=== PATIENT | female | born 1985 | race Caucasian/White ===

== ENCOUNTER 2020-05-24 19:27 | Emergency (ER) | payer OTHER, SELFPAY ==
[2020-05-24 19:40] VITALS: BP 134/73; PULSE 125; RESP 13; TEMP 36.8; O2SAT 97
--- NOTE | 2020-05-24 20:11 | ED.SKABFB ---
HPI - Skin/Abscess/Foreign Bdy General Chief complaint: Skin/Abscess/Foreign Body Stated complaint: possible shingles on upper abd Source: patient Mode of arrival: ambulatory Limitations: no limitations History of Present Illness HPI narrative: patient is a 34-year-old female who presents to the ED with complaints of a rash on her right breast. Patient states that as feels like the shingles that she has had in the past. She noticed that some bumps about 5 days ago, and then today had noticed that there is blisters and redness in the back in the area. the skin is much more painful if touched, she continues to pull her shirt out so it is not touching Severity: mild Severity scale (1-10): 2 Quality: burning Pain Consistency: constant Relieving factors: none Exacerbating factors: other ( Anything touching her skin makes it worse) Associated symptoms: denies other symptoms Treatments prior to arrival: none Related Data Allergies Allergy/AdvReac Type Severity Reaction Status Date / Time No Known Allergies Allergy Unknown Unverified 03/03/09 17:10 Review of Systems Review of Systems: All systems reviewed & are unremarkable except as noted in HPI and below Constitutional: Constitutional: Denies as per HPI, Denies no additional constitutional complaints, Denies chills, Denies fatigue, Denies fever(s) and Denies weakness Eyes: Eyes: Denies as per HPI, Denies no additional eye complaints, Denies change in vision and Denies photophobia ENT: Denies system reviewed and no additional complaints, except as documented, Denies as per HPI, Denies dysphagia, Denies vertigo, Denies dizziness, Denies epistaxis, Denies nasal congestion and Denies sore throat Cardiovascular: Cardiovascular: Denies as per HPI, Denies no additional cardiovascular complaints, Denies chest pain, Denies rapid heart rate, Denies radiating jaw, neck or arm pain and Denies slow heart rate Respiratory: Respiratory: Denies as per HPI, Denies no additional respiratory complaints, Denies chest congestion, Denies cough, Denies dyspnea and Denies wheezing Gastrointestinal: Gastrointestinal: Denies as per HPI, Denies no additional gastrointestinal complaints, Denies abdominal pain, Denies bloating, Denies constipation, Denies heartburn, Denies diarrhea, Denies nausea and Denies vomiting Musculoskeletal: Musculoskeletal: Denies no additional musculoskeletal complaints, Denies as per HPI, Denies back pain, Denies myalgias, Denies arthralgias, Denies joint swelling and Denies muscle cramps Integumentary/Breasts: Comments: rash inferior to the nipple on the right side Neurologic: Reports system reviewed and no additional complaints, except as documented Psychiatric: Psychiatric: Reports no additional psychiatric complaints Comments: patient has been under a good deal of stress recently and she is trying the sell her house and moving has she has has been a lot going on but seems to be getting better now. PMFSH Past Medical History Medical History (Updated 05/24/20 @ 20:16 by Velia Brannon MD) Shingles Social History Social History (Updated 05/24/20 @ 20:14 by Velia Brannon MD) Smoking status: Current every day smoker Tobacco type: cigarettes Alcohol intake: current Substance use: never Exam Const: General: no acute distress and alert Nutritional Appearance: well nourished Orientation/consciousness: patient oriented x3 HENMT: Head: normal to inspection Mouth: Yes moist mucous membranes Eyes: Conjunctivae: conjunctivae normal Pupils: Equal, round and reactive pupils present Neck: Neck: normal visual inspection Chest: Chest palpation & inspection: normal inspection of the chest Other: Patient does have shingles type rash to the right breast Resp: Effort & Inspection: normal respiratory effort Auscultation: clear to auscultation bilaterally Cardio: Rate: regular rate Rhythm: regular rhythm : General: Yes no CVA tenderness Back/Spine
[2020-05-24 20:14] VITALS: BP 130/76; PULSE 98; RESP 13; O2SAT 98
[2020-05-24] MEDS: VALACYCLOVIR HCL 500 MG TABLET 1000 MG PO (20:28)
== END 2020-05-24 20:31 | disposition home or self-care (01) ==
PROVIDERS: Emergency Provider Emergency Medicine; PCP Internal Medicine
DX: B02.9 Zoster without complications (principal)
CPT/HCPCS: 99283; A9270

== ENCOUNTER 2020-10-16 18:10 | Emergency (ER) | payer OTHER, SELFPAY ==
--- NOTE | ~2020-10-16 | CT_ITS ---
EXAMINATION: CT brain wo con DATE: 10/16/2020 19:37 INDICATION: Left-sided amaurosis fugax. Left hand numbness. TECHNIQUE: Computed tomography (CT) of the head was performed without intravenous contrast. Sagittal and coronal reconstructions were performed. The mA was adjusted according to patient size. Iterative reconstruction technique was employed. The dose-length product was 605.33 mGy-cm. COMPARISON: head CT dated 02/10/2015 and brain MR dated 03/05/2015 FINDINGS: No acute intracranial hemorrhage, acute infarction or abnormal extra axial fluid collection. Ventricl es are normal and symmetric. No mass/mass effect. The orbits, paranasal sinuses and mastoid air cells are normal. IMPRESSION: 1. Normal head CT. Reviewed, dictated and finalized at [facility]. RE D' IMPRESSION: 1. Normal head CT.
--- NOTE | ~2020-10-16 | XR_ITS ---
EXAMINATION: XR chest 2V DATE: 10/16/2020 19:37 INDICATION: Palpitations. Amaurosis fugax. TECHNIQUE: PA and lateral views of the chest were obtained. COMPARISON: Chest radiograph dated 05/03/2019 FINDINGS: The lungs remain clear with no focal airspace opacities, pulmonary edema, pleural effusion or pneumot horax. The cardiomediastinal silhouette is normal. Minimal thoracic spondylosis with mild disc height loss at T8-T9. IMPRESSION: 1. No acute cardiopulmonary disease. Reviewed, dictated and finalized at location H. TRUCK DRIVER
[2020-10-16 18:10] VITALS: BP 140/79; PULSE 75; RESP 14; TEMP 36.6; O2SAT 100
--- NOTE | 2020-10-16 18:20 | ED.NEUROSD ---
HPI - Neuro Symptoms/Deficit General Chief Complaint: Neuro Symptoms/Deficit Stated Complaint: loss of vision in eye and finger/hand numbness Time Seen by Provider: 10/16/20 18:20 Source: patient Mode of arrival: ambulatory Limitations: no limitations History of Present Illness HPI Narrative: Previously well 34-year-old woman comes in today complaining of visual changes in her left eye which lasted approximately 1-1/2 hour. Patient states that it initially started in the central portion of her vision and then seemed to move toward the outer portions. She had some vision but her vision was distorted. Right eye was unaffected. Approximately 1/2 hour later she began to have numbness in her left hand. She had some nausea with the symptoms and a rapid heart rate. She denies weakness, headache, vomiting, diarrhea, recent illness, recent head injury, history of seizures, changes in walking or language. Onset (ago): hour(s) (2) Time: 16:30 History of same: Yes ( Possible migraine however her ocular symptoms were different. ) Severity: severe Quality: numb Relieving factors: none Exacerbating factors: none Context: sudden onset On Anticoagulants: No Treatments Prior to Arrival: none Related Data Home Medications Medication Instructions Recorded Confirmed No Home Medications 07/09/20 10/16/20 Allergies Allergy/AdvReac Type Severity Reaction Status Date / Time No Known Allergies Allergy Unknown Unverified 07/09/20 13:05 Review of Systems Constitutional: Constitutional: Denies fever(s), Denies headache(s) and Denies malaise Eyes: Eyes: Reports as per HPI, Denies diplopia and Denies photophobia ENT: Reports Normal hearing present, Denies otalgia, Denies facial pain, Denies disequilibrium, Denies sore throat, Denies throat swelling and Denies tongue swelling Cardiovascular: Cardiovascular: Denies chest pain, Denies syncope, Reports rapid heart rate, Denies leg edema and Denies radiating jaw, neck or arm pain Respiratory: Respiratory: Denies chest congestion, Denies cough and Denies dyspnea Gastrointestinal: Gastrointestinal: Denies abdominal pain, Denies diarrhea, Reports nausea and Denies vomiting Genitourinary: Genitourinary: Denies hematuria and Denies dysuria Musculoskeletal: Musculoskeletal: Denies back pain, Denies arthralgias and Denies joint swelling Integumentary/Breasts: Skin/Breast: Denies change in pigmentation, Denies erythema and Denies rash Neurologic: Reports as per HPI, Reports Normal hearing present, Denies Neuro-related abnormal movements, Denies Abnormal speech present, Denies abnormal gait, Denies dizziness, Denies syncope, Denies headache(s), Denies focal weakness, Denies memory loss, Reports numbness, Reports Other visual disturbances, Denies seizure-like activity and Denies weakness Hematologic/Lymphatic: Hematologic/Lymphatic: Denies easy bleeding and Denies easy bruising Allergic/Immunologic: Allergic/Immunologic: Denies urticaria, Denies throat swelling and Denies tongue swelling PMFSH Past Medical History Medical History (Updated 10/16/20 @ 19:53 by Jenaro Espinosa MD) Nicotine dependence, cigarettes, uncomplicated Shingles Surgical History Surgical History No pertinent past surgical history Family History Family History (Updated 07/09/20 @ 13:28 by Nedra Martines NP) Grandparent Breast cancer Grandparent Diabetes mellitus Social History Social History Smoking status: Current every day smoker Tobacco type: cigarettes Alcohol intake: current Substance use: never Exam Const: General: cooperative, healthy appearing, comfortable, no acute distress, alert, awake and Physically active Nutritional Appearance: average body habitus Orientation/consciousness: patient oriented x3 Limitations: no limitations HENMT: Head: normocephalic and atraumatic
--- NOTE | 2020-10-16 18:32 | ECG_ITS ---
Measurements Intervals [place] Rate: 93 P: 69 MA: 168 QRS: 59 QRSD: 110 T: 53 QT: 344 QTc: 430 Interpretive Statements SINUS RHYTHM INCOMPLETE RIGHT BUNDLE BRANCH BLOCK BORDERLINE ECG Electronically Signed On 10-17-2020 8:53:59 CRYPTOGRAPHIC CLERK by Rigo Talbot D.O.
[2020-10-16 18:52] LABS: Glucose Point of Care 76 (65-105)
[2020-10-16 19:09] LABS: Basophils Absolute Auto 0.06 K/mm3 (0.00-0.10); Basophils Percent Auto 0.7 % (0.0-1.0); Eosinophils Absolute Auto 0.12 K/mm3 (0.02-0.50); Eosinophils Percent Auto 1.3 % (1.0-6.0); Hematocrit 47.3 % (35.0-49.0); Hemoglobin 15.8 g/dL (12.0-15.0); Immature Granulocyte Absolute 0.02 K/mm3 (0.00-0.00); Immature Granulocyte Percent A 0.2 % (0.0-0.0); Lymphocytes Absolute Auto 2.58 K/mm3 (1.10-4.50); Lymphocytes Percent Auto 28.4 % (18.0-42.0); Mean Corpuscular HGB Conc 33.4 g/dL (32.0-36.0); Mean Corpuscular Hemoglobin 30.5 pg (27.0-31.0); Mean Corpuscular Volume 91.3 fL (78.0-102.0); Mean Platelet Volume 10.9 fl (9.2-11.8); Monocytes Absolute Auto 0.59 K/mm3 (0.10-0.90); Monocytes Percent Auto 6.5 % (2.0-11.0); Neutrophils Absolute Auto 5.7 K/mm3 (1.7-7.2); Neutrophils Percent Auto 62.9 % (50.0-70.0); Platelet Count Result 289 K/mm3 (150-420); Red Blood Count 5.18 M/mm3 (4.20-5.40); Red Cell Distribution Width 11.9 % (11.6-14.4); White Blood Count 9.1 K/mm3 (4.8-10.8)
[2020-10-16 19:13] LABS: Appearance Urine Clear (Clear); Bilirubin Urine Negative (Negative); Color Urine Yellow (Yellow); Glucose Urine UA Negative (Negative); Ketones Urine Negative (Negative); Leukocyte Esterase Ur Negative LEU/UL (Negative); Nitrate Urine Negative (Negative); Protein Urine Negative (Negative); Specific Grav Ur 1.015 (1.010-1.020); Urobilinogen Urine 0.2 mg/dL (0.2-1.0)
[2020-10-16 19:21] LABS: Pregnancy On Board Control Positive; Urine Pregnancy Test Negative
[2020-10-16 19:21] LABS: Add Urine Microscopic? YES; Bacteria Urine Trace /hpf; Blood Urine Trace (Negative); RBC Urine 0-2 /hpf (0-2); Squamous Epithelial Cell Urine Few /hpf (Few); WBC Urine 0-3 /hpf (0-3)
[2020-10-16 19:23] LABS: Partial Thromboplastin Time 26.5 SEC (23.90-30.70); Prothrombin Time 10.9 Seconds (9.50-12.10)
[2020-10-16 19:30] LABS: Alanine Aminotransferase 45 U/L (14-59); Albumin Level 4.8 g/dL (3.4-5.0); Alkaline Phosphatase 58 U/L (46-116); Anion Gap 11 mmol/L (8-16); Aspartate Amino Transferase 21 U/L (15-37); Bilirubin,Total 0.4 mg/dL (0.00-1.00); Blood Urea Nitrogen 10 mg/dL (7-18); Calcium 9.2 mg/dL (8.5-10.1); Carbon Dioxide 26 mmol/L (21-32); Chloride 103 mmol/L (98-108); Estimated CRCL calculation 64 ml/min; Estimated Glomerular Filt Rate > 60; Glucose 89 mg/dL (70-99); Osmolality Calculated 288 mOsm/kg (285-295); Potassium 3.7 mmol/L (3.5-5.1); Sodium 140 mmol/L (136-145); Total Protein 8.4 g/dL (6.4-8.2)
[2020-10-16 19:31] LABS: Amphetamine Screen Urine Negative (Negative); Barbiturate Screen Urine Negative (Negative); Benzodiazepines Screen Urine Negative (Negative); Cannabinoid Screen Urine Negative (Negative); Cocaine Screen Urine Negative (Negative); Methadone Screen Urine Negative (Negative); Opiate Screen Urine Negative (Negative); Phencyclidine Screen Urine Negative (Negative)
[2020-10-16 19:32] LABS: CRP < 0.2 mg/dL (0.0-0.9); Ethanol < 3 mg/dL (0-6); Troponin I < 0.02 ng/mL (0.00-0.056)
[2020-10-16 19:33] LABS: Magnesium 2.2 mg/dL (1.8-2.4); Thyroid Stimulating Hormone Reflex 1.79 u/IU/mL (0.36-3.74)
[2020-10-16 19:34] LABS: D Dimer 0.22 mg/L (0.19-0.50)
[2020-10-16 20:08] VITALS: BP 120/68; PULSE 89; RESP 12; O2SAT 96
[2020-10-16 20:09] LABS: Erythrocyte Sedimentation Rate 6 mm/hr (0-15)
[2020-10-19 20:38] LABS: Antithrombin III Activity 116 % normal (80-135)
[2020-10-20 05:47] LABS: Anti Cardio Antibody IgM 19 MPL (<=12); Anti Cardiolipin Antibody IgA <11 APL (<=11); Anti Cardiolipin Antibody IgG <14 GPL (<=14)
[2020-10-22 19:50] LABS: Lupus dRVVT 1:1 Mix Interpreta Not Indicated; Lupus dRVVT Screen 33 sec (<=45); PTT-LA Screen 30 sec (<=40)
== END 2020-10-16 20:13 | disposition home or self-care (01) ==
PROVIDERS: Emergency Provider Emergency Medicine; PCP Nurse Practitioner Family
DX: H34.02 Transient retinal artery occlusion, left eye (principal); R20.0 Anesthesia of skin
CPT/HCPCS: 36415; 70450; 71046; 80053; 80307; 81001; 81025; 81241; 82948; 83735; 84443; 84484; 85025; 85300; 85303; 85306; 85380; 85610; 85613; 85652; 85730; 86140; 86147; 93005; 99284

== ENCOUNTER 2020-12-03 11:14 | Outpatient (CLI) | payer OTHER, SELFPAY ==
[2020-12-05 11:25] LABS: TB Skin Test Erythema 0 mm; TB Skin Test Induration 10 mm (0-10); TB Skin Test Interpretation Negative (Negative); TB Skin Test Site Left Arm
== END 2020-12-03 11:15 | disposition home or self-care (01) ==
LOC: CHSLAB 11:16
PROVIDERS: PCP Nurse Practitioner Family; Visit Provider Nurse Practitioner Family
DX: Z00.00 Encounter for general adult medical examination without abnormal findings (principal)
CPT/HCPCS: 36415; 86580

== ENCOUNTER 2020-12-12 15:04 | Outpatient (CLI) | payer OTHER, SELFPAY ==
[2020-12-15 15:14] LABS: TB Skin Test Induration 0 mm (0-10); TB Skin Test Interpretation Negative (Negative); TB Skin Test Site Left Arm
[2020-12-15 15:15] LABS: TB Skin Test Erythema 0 mm
== END 2020-12-12 15:05 | disposition home or self-care (01) ==
PROVIDERS: PCP Nurse Practitioner Family; Visit Provider Nurse Practitioner Family
DX: Z00.00 Encounter for general adult medical examination without abnormal findings (principal)
CPT/HCPCS: 36415; 86580

== ENCOUNTER 2021-01-17 15:50 | Outpatient (NON) | payer OTHER, SELFPAY | END 2021-01-17 15:51 | PROVIDERS: PCP Nurse Practitioner Family; Visit Provider Nurse Practitioner Family | DX: R30.0 Dysuria (principal) | CPT/HCPCS: 87086 ==

== ENCOUNTER 2021-08-01 14:25 | Outpatient (CLI) | payer OTHER, SELFPAY ==
--- NOTE | 2021-08-01 14:27 | ECG_ITS ---
Measurements Intervals [place] Rate: 70 P: 71 PA: 165 QRS: 68 QRSD: 104 T: 57 QT: 354 QTc: 382 Interpretive Statements SINUS RHYTHM INCOMPLETE RIGHT BUNDLE BRANCH BLOCK BASELINE WANDER- V1, V3 BORDERLINE ECG Electronically Signed On 08-01-2021 19:11:07 CDT by Rigo Talbot D.O.
== END 2021-08-01 14:26 | disposition home or self-care (01) ==
LOC: CHSCARD 14:27
PROVIDERS: PCP Family Medicine; Visit Provider Family Medicine
DX: R94.31 Abnormal electrocardiogram [ECG] [EKG] (principal); R07.89 Other chest pain
CPT/HCPCS: 93005

== ENCOUNTER 2022-02-04 15:36 | Emergency (ER) | payer OTHER, MEDICAID, SELFPAY ==
[2022-02-04 15:53] VITALS: BP 144/91; PULSE 86; RESP 18; TEMP 37; O2SAT 100
--- NOTE | 2022-02-04 16:05 | ED.FEMALEGU ---
HPI - Female Genitourinary General Chief complaint: Urogenital-Female Stated complaint: Female Urogenital Time Seen by Provider: 02/04/22 15:50 Source: patient Mode of arrival: ambulatory Limitations: no limitations History of Present Illness HPI Narrative: Sophia Guajardo is a 36 yo female with no PMH right who comes to [facility] with complaints of vaginal discharge that she believes to be BV. She has had it for a month she has no outside partners and rarely has intercourse and when she does she uses lemon skin condoms because she is allergic to latex. She states that she just has not used any of the snju-klo-jataejx stuff that is available and thought that it would go away on its own. Directly about the concerns and she denied having any concern Related Data Allergies Allergy/AdvReac Type Severity Reaction Status Date / Time No Known Allergies Allergy Unknown Verified 02/04/22 15:44 Review of Systems Review of Systems: CONSTITUTIONAL: Denies fever, chills, sweats. EYES: Denies visual changes, redness, discharge. ENT: Denies rhinorrhea, congestion, sore throat, otalgia. CARDIOVASCULAR: Denies chest pain, palpitations, edema. RESPIRATORY: Denies dyspnea, wheezing, cough GASTROINTESTINAL: Denies abdominal pain, nausea, vomiting, diarrhea. GENITOURINARY: Denies dysuria, hematuria, abnormal discharge SKIN: Denies rash or itching. NEUROLOGIC: Denies numbness, or focal weakness. PSYCHIATRIC: Denies anxiety or depression. Mental discharge with skin irritation PMFSH Past Medical History Medical History (Updated 02/04/22 @ 16:13 by Nneka Martin CNP) Nicotine dependence, cigarettes, uncomplicated Shingles Surgical History Surgical History No pertinent past surgical history Family History Family History Grandparent Breast cancer Grandparent Diabetes mellitus Social History Social History Smoking status: Current every day smoker Tobacco type: cigarettes Alcohol intake: current Substance use: never Comments At time of signature, I agree with nursing past medical, surgical, social and family history. There is no relevant family history pertinent to the presenting complaint. Exam Narrative: GENERAL: This is a well-nourished, well-developed patient, in mild distress. HEAD: normocephalic, atraumatic. EYES: Sclera clear/white. Vision is grossly intact. EARS: External ears normal, Hearing grossly intact. NOSE: External nose normal without nasal discharge, nares without redness, no rhinorrhea. THROAT: Mucous membranes moist, NECK: Neck supple, non-tender CARDIOVASCULAR: Regular rate and rhythm without murmurs, gallops, or rubs. RESPIRATORY: Clear to auscultation. Breath sounds equal bilaterally. No wheezes, rales, or rhonchi. GASTROINTESTINAL: Not performed SKIN: warm, intact with no suspicious lesions or rash, good texture and turgor. NEURO: awake, alert, and oriented to person, place and time. There were no obvious focal neurologic abnormalities. Steady gait EXTREMITIES: Normal range of motion. BACK: Nontender without deformity Course Course Emergency Course: Patient comes with a vaginal discharge that she believes to be bacterial vaginosis UA shows 1+ leukocytes, negative , GC chlamydia run just because of her frequency of sexual interaction with her same partner Started on metronidazole 500 mg p.o. twice daily x7days Level of Care: Express Care Visit Vital Signs Vital signs: Vital Signs Temperature 98.6 F 02/04/22 15:53 Pulse Rate 86 02/04/22 15:53 Respiratory Rate 18 02/04/22 15:53 Blood Pressure 144/91 H 02/04/22 15:53 Pulse Oximetry 100 02/04/22 15:53 Temperature 98.6 F 02/04/22 15:53 Pulse Rate 86 02/04/22 15:53 Respiratory Rate 18 02/04/22 15:53 Blood Pressure 144/91 H 02/04/22 15:53 Pulse Oxim
== END 2022-02-04 16:15 | disposition home or self-care (01) ==
PROVIDERS: Emergency Provider Nurse Practitioner; PCP Family Medicine
DX: N76.0 Acute vaginitis (principal); F17.210 Nicotine dependence, cigarettes, uncomplicated
CPT/HCPCS: 81003; 81025; 87491; 87591; 99213; G0463

== ENCOUNTER 2022-05-18 15:25 | Outpatient (CLI) | payer OTHER, MEDICAID, SELFPAY ==
[2022-05-18 15:40] LABS: Basophils Absolute Auto 0.05 K/mm3 (0.00-0.10); Basophils Percent Auto 0.6 % (0.0-1.0); Eosinophils Absolute Auto 0.13 K/mm3 (0.02-0.50); Eosinophils Percent Auto 1.5 % (1.0-6.0); Hematocrit 47.2 % (35.0-49.0); Hemoglobin 15.8 g/dL (12.0-15.0); Immature Granulocyte Absolute 0.02 K/mm3 (0.00-0.00); Immature Granulocyte Percent A 0.2 % (0.0-0.0); Lymphocytes Absolute Auto 2.05 K/mm3 (1.10-4.50); Lymphocytes Percent Auto 24.1 % (18.0-42.0); Mean Corpuscular HGB Conc 33.5 g/dL (32.0-36.0); Mean Corpuscular Hemoglobin 30.7 pg (27.0-31.0); Mean Corpuscular Volume 91.7 fL (78.0-102.0); Mean Platelet Volume 10.1 fl (9.2-11.8); Monocytes Absolute Auto 0.58 K/mm3 (0.10-0.90); Monocytes Percent Auto 6.8 % (2.0-11.0); Neutrophils Absolute Auto 5.7 K/mm3 (1.7-7.2); Neutrophils Percent Auto 66.8 % (50.0-70.0); Platelet Count Result 284 K/mm3 (150-420); Red Blood Count 5.15 M/mm3 (4.20-5.40); Red Cell Distribution Width 12.5 % (11.6-14.4); White Blood Count 8.5 K/mm3 (4.8-10.8)
[2022-05-18 15:45] LABS: Add Urine Microscopic? NO; Appearance Urine Clear (Clear); Bilirubin Urine Negative (Negative); Blood Urine Negative (Negative); Color Urine Yellow (Yellow); Glucose Urine UA Negative (Negative); Ketones Urine Negative (Negative); Leukocyte Esterase Ur Negative LEU/UL (Negative); Nitrate Urine Negative (Negative); Protein Urine Negative (Negative); Urobilinogen Urine 0.2 mg/dL (0.2-1.0); pH Urine 6.5 (5.0-8.0)
[2022-05-18 16:50] LABS: Alanine Aminotransferase 39 U/L (14-59); Albumin Level 4.7 g/dL (3.4-5.0); Alkaline Phosphatase 60 U/L (46-116); Anion Gap 9 mmol/L (8-16); Aspartate Amino Transferase 21 U/L (15-37); Bilirubin,Total 0.9 mg/dL (0.00-1.00); Blood Urea Nitrogen 8 mg/dL (7-18); Calcium 9.3 mg/dL (8.5-10.1); Carbon Dioxide 28 mmol/L (21-32); Chloride 102 mmol/L (98-108); Estimated Glomerular Filt Rate > 60; Free T4 Free Thyroxine 0.91 ng/dL (0.76-1.46); Glucose 83 mg/dL (70-99); Iron 180 ug/dL (50-170); Magnesium 2.3 mg/dL (1.8-2.4); Osmolality Calculated 285 mOsm/kg (285-295); Potassium 4.5 mmol/L (3.5-5.1); Sodium 139 mmol/L (136-145); Total Protein 7.8 g/dL (6.4-8.2); Vitamin B12 321 pg/mL (193-986)
[2022-05-22 07:30] LABS: Vitamin D 25 Hydroxy 24 ng/mL (30-100)
== END 2022-05-18 15:26 | disposition home or self-care (01) ==
LOC: CHSLAB 15:27
PROVIDERS: PCP Nurse Practitioner Family; Visit Provider Nurse Practitioner Family
DX: R53.83 Other fatigue (principal); R35.0 Frequency of micturition; Z79.899 Other long term (current) drug therapy
CPT/HCPCS: 36415; 80053; 81003; 82306; 82607; 83540; 83735; 84439; 84443; 85025

== ENCOUNTER 2023-01-19 14:59 | Outpatient (NON) | payer OTHER, MEDICAID, SELFPAY | END 2023-01-19 15:00 | disposition home or self-care (01) | LOC: CHSLAB 15:01 | PROVIDERS: Visit Provider Nurse Practitioner Family | DX: L02.91 Cutaneous abscess, unspecified (principal) | CPT/HCPCS: 87070; 87205 ==

== ENCOUNTER 2023-04-05 15:13 | Outpatient (CLI) | payer OTHER, MEDICAID, SELFPAY ==
[2023-04-09 05:11] LABS: FSH 8.4 mIU/mL (***); LH 2.2 mIU/mL (***)
[2023-04-12 01:47] LABS: Vitamin D 25 Hydroxy 29 ng/mL (30-100)
[2023-04-15 13:42] LABS: Estrogen 245.4 pg/mL
[2023-04-15 22:08] LABS: Estradiol, Ultrasensitive 52 pg/mL
== END 2023-04-05 15:14 | disposition home or self-care (01) ==
PROVIDERS: PCP Nurse Practitioner Family; Visit Provider Nurse Practitioner Family
DX: E55.9 Vitamin D deficiency, unspecified (principal); N92.6 Irregular menstruation, unspecified
CPT/HCPCS: 36415; 82306; 82670; 82672; 83001; 83002

== ENCOUNTER 2023-06-09 18:39 | Outpatient (CLI) | payer OTHER, SELFPAY ==
[2023-06-14 11:43] LABS: NIL 0.03 IU/mL; Quantiferon TB Plus, 1T NEGATIVE (NEGATIVE); TB1-NIL 0.02 IU/mL; TB2-NIL 0.05 IU/mL
== END 2023-06-09 18:40 | disposition home or self-care (01) ==
LOC: CHSLAB 18:41
PROVIDERS: PCP Nurse Practitioner Family; Visit Provider Nurse Practitioner Family
DX: Z02.1 Encounter for pre-employment examination (principal)
CPT/HCPCS: 36415; 86480

== ENCOUNTER 2024-08-04 09:31 | Outpatient (CLI) | payer OTHER, MEDICAID, SELFPAY ==
--- NOTE | ~2024-08-04 | US_ITS ---
EXAMINATION: US pelvic complete w TV DATE: 08/04/2024 10:26 INDICATION: Excessive and frequent menstruation. TECHNIQUE: Multiple transabdominal and transvaginal sonographic images of the pelvis were obtained. COMPARISON: None. FINDINGS: TRANSABDOMINAL ULTRASOUND: The uterus measures 8.5 x 4.5 x 5.4 cm. There is no free fluid in the pelvis. TRANSVAGINAL ULTRASOUND: The endometrial complex measures 4 mm in thickness. The right ovary measures 2.2 x 1.7 x 1.6 cm. The left ovary measures 2.6 x 2.3 x 2.5 cm. There is normal vascular flow in the ovaries. IMPRESSION: 1. Normal pelvis. Reviewed, dictated and finalized at location A. IMPRESSION: 1. Normal pelvis.
== END 2024-08-04 09:32 | disposition home or self-care (01) ==
PROVIDERS: PCP Nurse Practitioner Family; Visit Provider Obstetrics & Gynecology
DX: N92.1 Excessive and frequent menstruation with irregular cycle (principal)
CPT/HCPCS: 76830; 76856

== ENCOUNTER 2025-03-30 13:45 | Outpatient (CLI) | payer OTHER, SELFPAY ==
--- NOTE | ~2025-03-30 | US_ITS ---
EXAMINATION: US pelvic complete w TV INDICATION: Uterine hypertrophy Comparison:No prior studies for comparison. TECHNIQUE: Multiple transabdominal and endovaginal sonographic images of the pelvis performed. FINDINGS: The uterus measures 8.2 x 5.1 x 4.4 cm. Myometrium is somewhat heterogeneous, although no d iscrete mass identified. The endometrial complex measures 5 mm. The right ovary measures 2.8 x 1.9 x 1.1 cm and the left ovary measures 3.2 x 2.7 x 2.8 cm. There ar e small follicles in each ovary. There is a simple left ovarian cyst measuring 2.5 cm. Normal doppler signal in both ovaries. There is no free fluid in the pelvis. There are no abnormal masses seen on either side. IMPRESSION: 1. Simple left ovarian cyst measuring 2.5 cm. Reviewed, dictated and finalized at location A.
--- OUTSIDE RECORDS SUMMARY | 2025-03-30 13:48 | XMS_ITS | Continuity of Care Document ---
Author Organization [facility] Address [address] [place] [address] Phone Care Team Providers Care Design Release Engineer Name Role Phone [facility] Unavailable Unavail able Procedures Procedure Date SV Poly Carb Sph [place] To +/- 4 010 [facility] Frames Purchases Anti-reflective Coating Medical Tax [facility] Frames Purchases SV Poly Carb Sph [place] To +/- 4 008 Anti-reflective Coating Tax - Medical Eye Exam & Treatment Eye Exam, New Patient Refraction Advance Directives Directive Yes / No Effective Date File Name No Information Encounters Encounter Description Practice Location Reason(s) For Visit Diagnoses Date Provider Providers Copied on Encounter [facility], [id number] [place] [address] [address], [place], [place], [id number], [place] tel:[phone] [facility] No Information 3-201 0 [facility] . [address] [facility], [address], [place], [place], [id number], [place]. tel:[phone] Referring Provider: Rickey Parr OD A, [address], [place], [address]. tel:[phone] [facility], [address], [place], [place], [id number], [place] tel:[phone] [facility] No Information 4-200 8 [facility] . [address], [address], [place], [place], [id number], [place]. tel:[phone] Referring Provider: Rickey Parr OD M[place], [address], [place], [address]. tel:[phone] hoff Provider: Rhina Bishop, [address] [facility], [place], [address]. tel:[phone] [phone] [facility], [address], [place], [place], [id number], [place] tel:[phone] [facility] No Information Sep-2 0-200 8 Parr MAXIMILIANO Lang. [address] , [address], [place], [address], [place]. tel:[phone] Family History Family Member Type Diagnosis Age At Onset No Information Payers Payer name Insurance type Covered constitution party ID Authoriza tion(s) No Information Social History Type Description Quantity Date Captured Comments Sex Female Smoking Status No Information Chief Complaint And Reason For Visit No Information Reason For Referral Reason For Referral No Information History Of Present Illness Encounter Date Complaint History Of Prese nt Illness No Information Functional Status Date Functional Assessmen t No Information Instructions Date Instruction Additional Infor mation No Information Assessments Type Assessment Date No Information Patient Care Teams Name Effective Dates (start - stop) Status Members No Information
--- OUTSIDE RECORDS SUMMARY | 2025-03-30 13:48 | XMS_ITS | Clinical Summary ---
Author Organization [facility] [employer] Address [address] [place] [address] Care Team Providers Care Heavy Machinery Operator Name Role Phone Unavailable Primary Care Provider Unavailabl e Source Comments [facility],non-owned Affiliates and Associated Physician Practices is amultiple site organization consisting of ambulatory clinics and hospital sitesin [place], [place], [place] and [place]. This disclosure is being madepursuant to the Care Everywhere program and may not contain all information available regarding this patient. Last updated 18.[facility] Allergies No known active allergies Medications * Be aware that medications may not be up to date on this document. Alwaysverify current medications with the patient. norethindrone (PAYTON) 0.35 MG tablet Take 1 tablet by mouth once daily Active Social History Tobacco Use Types Packs/Day Years Used Date Smoking Tobacco: Every Day Smokeless Tobacco: Never Alcohol Use Standard Drinks/Week Comments Yes 0 (1 standard drink = 0.6 oz pur e alcohol) AUDIT-C Answer Date Recorded Frequency of Alcohol Consumption Monthly or less 09/07/2019 Average Number of Drinks Not on file 019 Frequency of Binge Drinking Not on file 08/22 Comments No Sex and Gender Information Value Date Recorded Sex Assigned at Not on file Legal Sex Female 3:42 PM CDT Gender Identity Not on file Sexual Orientation Not on file Last Filed Vital Signs Vital Sign Reading Time Taken Comments Blood Pressure 126/82 09/07/2019 11:00 AM CDT Pulse 72 09/07/2019 11:00 AM CDT Temperature 37 C (98.6 F) 09/07/2019 11:00 AM CDT Respiratory Rate 16 09/07/2019 11:00 AM CDT Oxygen Saturation 98% 09/07/2019 11:00 AM CDT Inhaled Oxygen Concentration - - Weight 63 kg (139 lb) 09/07/2019 11:00 AM CDT Height 154.9 cm (5' 1 ) 09/07/2019 11:00 AM CDT Body Mass Index 26.26 09/07/2019 11:00 AM CDT Plan of Treatment Health Maintenance Due Date Last Done Comments LIPID TESTING 1983 MAMMOGRAM 1983 HIV SCREENING 1998 HEPATITIS C SCREENING 11/21/2001 DTAP/TDAP/TD VACCINES (1 - Tdap) 2002 HEPATITIS B VACCINE (1 of 3 - 19+ 3-dose series) 2002 COVID-19 VACCINE (2023-2 5 season) 2024 DEPRESSION SCREENING 11/22/2024 INFLUENZA VACCINE (Season Ended) 2025 ZOSTER VACCINE (1 of 2) 2033 HIB VACCINE Aged Out No longer eligi ble based on patient's age to complete this topic HPV VACCINE Aged Out No longer eligi ble based on patient's age to complete this topic MENINGOCOCCAL (Group B) VACC INE SHARED DECISION-MAKING Aged Out No longer eligibl e based on patient's age to complete this topic MENINGOCOCCAL GROUPS A/C/Y/W VACCINE Aged Out No longer eligible b ased on patient's age to complete this topic PNEUMOCOCCAL VACCINE Aged Out No long er eligible based on patient's age to complete this topic
== END 2025-03-30 13:46 | disposition home or self-care (01) ==
LOC: ANHIMG 13:46
PROVIDERS: PCP Nurse Practitioner Family; Visit Provider Obstetrics & Gynecology
DX: N83.202 Unspecified ovarian cyst, left side (principal); N85.2 Hypertrophy of uterus
CPT/HCPCS: 76830; 76856